=== PATIENT | male | born 1990 | race Caucasian/White ===

== ENCOUNTER 2019-12-16 12:25 | Emergency (ER) | payer SELFPAY ==
[~2019-12-16] VITALS: Ht 175.3 cm; Wt 65.8 kg
[~2019-12-16 12:25] MED LIST: ACID CONTROL150 MG PO; ZOFRAN ODT4 MG PO
[2019-12-16] MEDS ORDERED: DOXYCYCLINE HY100 MG PO (13:36)
== END 2019-12-16 13:47 | disposition home or self-care (01) ==
LOC: ED 12:25
DX: S30.860A Insect bite (nonvenomous) of lower back and pelvis, initial encounter (principal); K21.9 Gastro-esophageal reflux disease without esophagitis; F17.200 Nicotine dependence, unspecified, uncomplicated; Z88.5 Allergy status to narcotic agent; Z79.899 Other long term (current) drug therapy; W57.XXXA Bitten or stung by nonvenomous insect and other nonvenomous arthropods, initial encounter
CPT/HCPCS: 99282

== ENCOUNTER 2023-04-11 17:40 | Inpatient (IN) | payer OTHER ==
[~2023-04-11] VITALS: Ht 175.3 cm; Wt 57.9 kg
--- OUTSIDE RECORDS SUMMARY | ~2023-04-11 | XMS | Continuity of Care Document ---
Demographics + + + | Address | [address] | | | [place] [address] | + + + | Preferred Language | Unknown | + + + | Marital Status | Never | + + + | Yarsani Affiliation | Unknown | + + + | Race | White | + + + | Ethnic Group | Unknown | + + + Author + + + | Author | [facility] | + + + | Organization | [facility] | + + + | Address | [address] | | | [place] [address] | + + + | Phone | | + + + Care Team Providers + + + + | Care Director Hedis Name | Role | Phone | + + + + Unavailable | Unavailable | + + + + Allergies and Intolerances + + + + + + | date | description | facility | reaction | severity | + + + + + + | (no date) | morphine | [facility] | (no reaction) | (no severity) | + + + + + + Encounters No information. Functional Status No information. Immunizations No information. Medications No information. Problems No information. Procedures No information. Results/Labs No information. Social History No information. Vital Signs No information."
[~2023-04-11 17:40] MED LIST changes: +DOXYCYCLINE HY100 MG PO
[2023-04-11 18:14] LABS: BASOPHILS 0.5 % (0-2); EOSINOPHILS 1.6 % (0-6); HEMATOCRIT 48.6 % (35.0-50.0); HEMOGLOBIN 16.5 g/dL (12.0-18.0); LYMPHOCYTES 12.1 % (24-44); MCH 28.7 (27-36); MCHC 34.1 g/dl (30-36); MCV 84.2 fl (81-99); MONOCYTES 4.6 % (0-12); NEUTROPHILS 81.2 % (39-80); PLATELET COUNT 280 K/uL (140-440); RBC 5.77 M/ul (4.3-5.7); RDW 13.7 (10.5-15.0)
[2023-04-11 18:29] LABS: ALBUMIN 4.6 g/dL (3.4-5.0); ALBUMIN/GLOBULIN RATIO 1.07 (1.1-2.4); ANION GAP 13.5 (7-21); BILIRUBIN, TOTAL 1.1 ng/dL (0.2-1.0); BUN/CREATININE RATIO 9.44 (6.0-28.6); CALCIUM 10.3 mg/dL (8.5-10.1); CREATININE, SERUM 1.27 mg/dL (0.70-1.30); POTASSIUM 3.5 mmol/L (3.5-5.1); PROTEIN, TOTAL 8.9 g/dL (6.4-8.2)
--- NOTE | 2023-04-11 20:47 | NUR ---
PT ASSESSMENT COMPLETE. PT RESTING IN BED, VERY DROWSY. MINIMALLY OPENS HIS EYES. NO NONVERBAL S/SX PAIN PRESENT. BT'S HYPOACTIVE. PT DENIES ABD TENDERNESS. MILD ABD DISTENSION NOTED. NG TUBE TO LIWS, DRAINING LIGHT BROWN FLUID. IV FLUSHED WITH 10 ML NS. WNL. VS OBTAINED. WNL. FLOAT RN AT BEDSIDE FOR ADMISSION PROCESS. PT'S MOM PRESENT AT BEDSIDE. FURTHER NEEDS DENIED AT THIS TIME. CALL LIGHT IN REACH.
[2023-04-11 20:58] VITALS: BP 116/70
--- NOTE | 2023-04-11 21:21 | NUR ---
REPORT RECEIVED FROM KEYONNA Soto RN. PT DROWSY, MOVES SELF OVER TO BED. IV WNL, CDI, FLUSHED WELL, MEDS PROVIDED. NG ON LIS. PT DENIES PAIN AT THIS TIME. BMAT 3, SBA FOR TUBING. URINAL AT BEDSIDE. MOTHER TOOK HOME WALLET AND KNIFE, PT BELONGINGS CONSIST OF A CELL PHONE AT BEDSIDE, A SHIRT, SHOES, JEANS AND BELT IN ROOM. MOUTH SWAB PROVIDED. RAILS UP, BED ALARM ON, CALL LIGHT IN REACH. REPORT THEN GIVEN TO WINNIE JERNIGAN RN.
--- NOTE | 2023-04-12 00:06 | NUR ---
PT UTILIZES CALL LIGHT, REQUESTS ADDITIONAL MOUTH SWAB, PROVIDED. DENIES FURTHER NEEDS. CALL LIGHT IN REACH.
[2023-04-12 01:44] VITALS: BP 112/66
--- NOTE | 2023-04-12 01:50 | NUR ---
PT ASSESSMENT COMPLETE. VS OBTAINED. WHILE OBTAINING VS PT BECOMES VERY ANXIOUS, WHIMPERING, ROCKING IN BED. STATING THAT THE NG TUBE WAS INCREDIBLY PAINFUL AND HE WAS UNABLE TO TOLERATE THE PAIN. PT RATES PAIN 7/10. PRNS ADMINISTERED. SEE EMAR. NG TO LIWS. LIGHT BROWN DRAINAGE PRESENT IN CANISTER. BT'S HYPOACTIVE. ABD TENDER TO PALPATION. PT REPORTS MILD DISTENSION. IV FLUSHED WITH 10 ML NS. WNL. IFV INFUSING ORDERED. PT UNABLE TO VOID SINCE ADMISSION. ENCOUAGED PT TO USE URINAL. PT STATES UNDERSTANDING. DENIES FURTHER NEEDS AT THIS TIME. CALL LIGHT IN REACH.
--- NOTE | 2023-04-12 04:27 | NUR ---
PT RESTING IN BED WITH EYES CLOSED. RESPIRATIONS EVEN AND UNLABORED. PT APPEARS TO BE SLEEPING. CALL LIGHT IN REACH.
[2023-04-12 05:37] VITALS: BP 118/63
[2023-04-12 05:54] LABS: BASOPHILS 0.5 % (0-2); EOSINOPHILS 4.4 % (0-6); HEMATOCRIT 39.7 % (35.0-50.0); HEMOGLOBIN 13.4 g/dL (12.0-18.0); LYMPHOCYTES 20.7 % (24-44); MCH 28.5 (27-36); MCHC 33.7 g/dl (30-36); MCV 84.7 fl (81-99); MONOCYTES 6.7 % (0-12); NEUTROPHILS 67.7 % (39-80); PLATELET COUNT 200 K/uL (140-440); RBC 4.69 M/ul (4.3-5.7); RDW 13.6 (10.5-15.0)
[2023-04-12 06:08] LABS: ALBUMIN 3.3 g/dL (3.4-5.0); ALBUMIN/GLOBULIN RATIO 0.97 (1.1-2.4); ANION GAP 8.1 (7-21); BILIRUBIN, TOTAL 0.5 ng/dL (0.2-1.0); BUN/CREATININE RATIO 10.28 (6.0-28.6); CALCIUM 8.9 mg/dL (8.5-10.1); CREATININE, SERUM 1.07 mg/dL (0.70-1.30); MAGNESIUM 1.5 mg/dL (1.8-2.4); PHOSPHORUS, INORGANIC 3.8 mg/dL (2.5-4.9); POTASSIUM 3.1 mmol/L (3.5-5.1); PROTEIN, TOTAL 6.7 g/dL (6.4-8.2)
--- NOTE | 2023-04-12 06:25 | NUR ---
PT BLADDER SCAN SHOWS 471ML. PT EDUCATION PROVIDED ABOUT THE NEED TO URINATE WITH GREATER THAN 400ML AND THE OPTIONS TO EMPTY THE BLADDER. PT STANDS AT BEDSIDE AND URINATES WITHOUT DIFFICULTY. SAMPLE SENT TO LAB. PT STATES NO OTHER NEEDS AT THIS TIME. NG @ LIS. IV FLUIDS INFUSING PER ORDER. CALL LIGHT IN REACH, BED ALARM ON.
[2023-04-12 06:26] LABS: BILIRUBIN, URINE POSITIVE (negative); BLOOD/HGB, URINE NEGATIVE (Negative); KETONE, URINE SMALL (Negative); LEUK ESTERASE, URINE NEGATIVE (negative); NITRITE, URINE NEGATIVE (negative); PH, URINE 6.5 (5-7)
--- NOTE | 2023-04-12 06:38 | CONS ---
[facility] [address], [place] [address] Signed DATE OF CONSULTATION: 04/11/2023 CHIEF COMPLAINT: Right lower quadrant abdominal pain. HISTORY OF PRESENT ILLNESS: Josefina is a 32-year-old young man, who underwent an open appendectomy with Dr. Hanley at age of [age]. 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 He went down to our [facility] in [place], [place], and had it repaired by the urologist. He had actually done very well since that time. Unfortunately, he lives from home to home to home and has been using methamphetamines. Although he tells his mom he has not used any methamphetamines for eight months. In August of this year, he was at [facility] in [place], [place]. He underwent laparotomy with lysis of adhesions, repair of a perforated bowel. He had called his mom earlier today, worried after that he was in a similar situation with a bowel obstruction. She went and found him at a friend's house and brought him to our local emergency room for evaluation. His white count was elevated. He is tender in the right lower quadrant and also a bit agitated, difficult to deal with. He had to be heavily sedated just to place the NG tube. CT scan shows the transition point in the mid small bowel with fecalization and dilated all the way back through the stomach. The distal portion is decompressed. His distal ureters and bladder appear normal. I have been asked to see him as a general surgeon on-call. In the meantime, he has had his NG tube placed. Currently he is quite sedated. PAST MEDICAL HISTORY: Gastroesophageal reflux disease, small-bowel obstruction, and congenital ureteral reflux. PAST SURGICAL HISTORY: Includes his open appendectomy at age [age] [address] Hanley, repair of his distal ureter at [facility] around age [age] or [age], an atrophic left kidney, lysis of adhesions with repair of small-bowel perforation in August 2022, at [facility] in [place], [place]. SOCIAL HISTORY: He does smoke cigarettes. He told his mother he has been off meth for 8 months. She is not sure if he drinks. He has no primary care provider. He has no pharmacy. His mother is Xochitl Mclaughlin at [phone]. Josefina is now and has one son. He is unemployed. FAMILY HISTORY: Brother developed diabetes at age 16. His mom has diabetes. Electronically Signed By: YEE BUSTOS MD 04/12/23 0638 PATIENT NAME: JOSEFINA COLORADO CONSULTATION DATE OF : 89 REPORT #: [id number] PHYSICIAN: YEE BUSTOS MD PCP: NO PRIMARY CARE PHYSICIAN REPORT IS CONFIDENTIAL AND NOT TO BE RELEASED WITHOUT AUTHORIZATION [facility] [address], [place] [address] Signed REVIEW OF SYSTEMS: I reviewed 10 systems with his mom. She actually filled in quite a bit of detail. ALLERGIES: Morphine. MEDICATIONS: Zantac, although not currently taking. PHYSICAL EXAMINATION: VITAL SIGNS: He was too agitated to take his blood pressure, his heart rate is 116, his respiratory rate 15, temperature is 97.5, he is 97% on room air. He is 5 feet 9 inches and 65 kg with a body mass index of 21. GENERAL: Josefina is a 32-year-old young man, lying supine semi-recumbent in his ER bed. He is quite sedated and just had his NG tube placed. His mom is at the bedside. Our nurse was in the room with this. Amazingly, he does answer appropriately, but very slowly. LUNGS: Clear to auscultation bilaterally. HEART: Regular rate rhythm without murmurs. ABDOMEN: Soft, flat, but he is tender in the right lower quadrant. LABORATORY DATA: His white blood cell count is 17.2, hemoglobin 16, neutrophils 81, platelets 280. Creatinine 1.27, his bicarb is 33, calcium is 10.3. Liver function tests are negative. Albumin is 4.6. RADIOGRAPHIC STUDIES: CT scan images and report has been reviewed. He has a transition point in his mid small-bowel in the right lower quadrant with fecalization and dilation of the proximal small-bowel and stomach. The distal small-bowel is decompressed. His distal ureters and bladder seem to be normal. ASSESSMENT AND PLAN: Josefina is a 32-year-old young man, who presents with a small-bowel obstruction in his right lower quadrant. He is going to be admitted and treated conservatively for the time being and hydrated, and I think we will go and start antibiotics as well. We will recheck his labs and reassess him 1st thing in the morning. I have explained to his mom he may very well need surgery once again. She has expressed understanding, agrees to above plan. Yee Bustos MD Electronically Signed By: YEE BUSTOS MD 04/12/23 0638 PATIENT NAME: JOSEFINA COLORADO CONSULTATION DATE OF : 89 REPORT #: [id number] PHYSICIAN: YEE BUSTOS MD PCP: NO PRIMARY CARE PHYSICIAN REPORT IS CONFIDENTIAL AND NOT TO BE RELEASED WITHOUT AUTHORIZATION [address] [place] [address] Signed ALB/MODL /[id number] cc: Yee Bustos MD Copies: YEE BUSTOS MD ~ Electronically Signed By: YEE BUSTOS MD 04/12/23 0638 PATIENT NAME: JOSEFINA COLORADO CONSULTATION DATE OF : 89 REPORT #: [id number] PHYSICIAN: YEE BUSTOS MD PCP: NO PRIMARY CARE PHYSICIAN REPORT IS CONFIDENTIAL AND NOT TO BE RELEASED WITHOUT AUTHORIZATION
--- NOTE | 2023-04-12 07:15 | NUR ---
IV PUMP ALARMING, NEW BAG IV FLUIDS PROVIDED. IV SITE WNL. CALL LIGHT IN REACH, BED ALARM ON.
--- NOTE | 2023-04-12 07:30 | NUR ---
REPORT FROM EUGENE JERNIGAN. PT HAS NG LIWS AND APPEARS TO BE RESTING WITH EYES CLOSED.
[2023-04-12 08:56] VITALS: BP 111/60
--- NOTE | 2023-04-12 08:56 | NUR ---
STARTED NEW IV IN RFA DUE TO MULT MEDS DUE ATT. PT TOLERATED WELL. LIWS WNL. GIVEN 1MG PAIN MEDS FOR 7\10 PAIN OF NOSE\THROAT. ABD FLAT AND NON TENDER. DENIES NEED TO VOID. BLINDS OPEN.
--- NOTE | 2023-04-12 09:19 | NUR ---
PT APPEARS TO BE SLEEPING. DID NOT ROUSE TO MY KNOCK. LEFT GUIDEPOST AND CONTACT CARD. PRAYED SILENT PRAYER FOR HEALING.
--- NOTE | 2023-04-12 09:25 | NUR ---
INTO PATIENT ROOM, PATIENT SLEEPING. DOES NOT WAKE TO VOICE. WILL RETURN AT A LATER TIME TO COMPLETE ASSESSMENT.
--- NOTE | 2023-04-12 09:48 | NUR ---
SWITCHED TO AB. PT REMAINS RESTING WITH EYES CLOSED. ANSWERS QUESTIONS MINIMALLY WITH EYES CLOSED AND MOSTLY GRUNTS.
[2023-04-12 10:31] LABS: AMPHETAMINES, UR POSITIVE (NEGATIVE); BARBITURATES, UR NEGATIVE (NEGATIVE); BENZODIAZEPINES, UR POSITIVE (NEGATIVE); COCAINE, UR NEGATIVE (NEGATIVE); MARIJUANA (THC), UR POSITIVE (NEGATIVE); MDMA, UR POSITIVE (NEGATIVE); METHADONE, UR NEGATIVE (NEGATIVE); METHAMPHETAMINE, UR POSITIVE (NEGATIVE); OPIATES, UR POSITIVE (NEGATIVE); OXYCODONE, UR NEGATIVE (NEGATIVE); PHENCYCLIDINE, UR NEGATIVE (NEGATIVE); TRICYCLIC ANTIDEPRESSANT, UR NEGATIVE (NEGATIVE)
[2023-04-12 10:32] LABS: BUPRENORPHINE,UR NEGATIVE (NEGATIVE)
--- NOTE | 2023-04-12 10:57 | NUR ---
PT RESTING WITH EYES CLOSED. OUTPUT ON NG APPEARS TO HAVE SLOWED SLIGHTLY. IV INFUSING IN BOTH LOCATIONS.
--- NOTE | 2023-04-12 11:00 | NUR ---
PT GVE VERBAL CONSENT TO SPEAK WITH MOTHER REGARDING UPDATE
--- NOTE | 2023-04-12 11:36 | NUR ---
SPOKE WITH MOTHER. MIGHT BE INLATER TODAY. PT BACK TO IVF AB AND ELECTROLYTES HAVE BEEN COMPLETED. DENIES NEED TO VOID.
--- NOTE | 2023-04-12 12:24 | NUR ---
INTO SEE PATIENT, PATIENT SLEEPING. ATTEMPTED TO WAKE PATIENT, BUT HE DOES NOT WAKE TO VOICE. REQUESTED STAFF ADVISE WHEN PATIENT IS AWAKE.
[2023-04-12 13:18] VITALS: BP 102/67
--- NOTE | 2023-04-12 13:52 | NUR ---
PT RESTING WITH EYES CLOSED. DENIES NEEDS ATT.
--- NOTE | 2023-04-12 15:44 | NUR ---
PT TRIED TO VOID, UNABLE. BLADDER SCANNED FOR 350. ADVISED TO TRY AGAIN. WENT TO GET PAIN MEDICATION AND HE HAD VOIDED UPON RETURN.
[2023-04-12 17:28] VITALS: BP 112/72
--- NOTE | 2023-04-12 19:41 | NUR ---
RECEIVED REPORT FROM DAY SHIFT RN. PATIENT IS RESTING IN BED WITH EYES CLSOED, RR 15. WHEN THIS RN LEFT RROM PATIENT COULD BE HEARD DOWN THE G[place]ERT YELLING. PATIENT REPORTS 8/10 PAIN. PRN PAIN MEDICATION GIVEN PER ORDER. PATIENT DENIES ANY FURTHER NEEDS. CALL LIGHT IN REACH.
[2023-04-12 19:56] VITALS: BP 116/74
--- NOTE | 2023-04-12 20:09 | NUR ---
PATIENTS VITALS TAKEN AND RECORDED. INTAKE AND OUTPUT RECORDED. PATIENT DENIES THE NEED TO VOID AT THIS TIME. PATIENTS NG TO LWIS. HYPOACTIVE BOWELS TONES. PATIENT REPORTS 4/10 PAIN AND DENIES THE NEED FOR INTERVENTION AT THIS TIME. PATIENT DENIES ANY NAUSEA. IV INFUSING PER ORDER. PATIENT ABLE TO DEMONSTRATE IS X2. SCDS IN PLACE. PATIENT IS AAOX4. PATIENT DENIES ANY FURTHER NEEDS. CALL LIGHT AND BELONGINGS ARE WITHIN REACH.
--- NOTE | 2023-04-13 00:29 | NUR ---
PATIENT IS RESTING IN BED WITH EYES CLOSED, RR 15. CALL LIGHT IN REACH. IV INFUSING PER ORDER.
[2023-04-13 01:31] VITALS: BP 109/68
--- NOTE | 2023-04-13 01:57 | NUR ---
PATIENTS VITALS TAKEN AND RECORDED. INTAKE AND OUTPUT RECORDED. PATIENT ASSISTED TO THE BR A 1PA. PATIENT IS LIGHT HEADED WHEN UP AND UNSTEADY ON HIS FEET. PATIENT BACK IN BED RESTING. NG TO LWIS. IV INFUSING PER ORDER. PATIENT DENIES ANY NAUSEA. PATIENT RATES PAIN AT A 6/10, PRN PAIN MEDICATION GIVEN PER ORDER. PATIENT HAS HIS SISTER AND HER BF IN ROOM AND THEY ARE LEAVING. PATIENT ASKED THEM TO TAKE HIS BELONGINGS WITH THEM. PATIENT DENIES ANY FURTHER NEEDS. CALL LIGHT IN REACH.
--- NOTE | 2023-04-13 04:01 | NUR ---
PATIENT IS RESTING IN BED WITH EYES CLSOED, RR 15. CALL LIGHT IN REACH. IV INFUSING PER ORDER.
[2023-04-13 05:15] VITALS: BP 116/74
[2023-04-13 05:37] LABS: BASOPHILS 0.5 % (0-2); HEMOGLOBIN 12.4 g/dL (12.0-18.0); LYMPHOCYTES 27.5 % (24-44); MCH 28.1 (27-36); MCHC 32.7 g/dl (30-36); MONOCYTES 8.7 % (0-12); NEUTROPHILS 56.3 % (39-80); PLATELET COUNT 171 K/uL (140-440); RBC 4.42 M/ul (4.3-5.7); RDW 13.7 (10.5-15.0)
[2023-04-13 05:52] LABS: ALBUMIN 2.9 g/dL (3.4-5.0); ALBUMIN/GLOBULIN RATIO 0.97 (1.1-2.4); ANION GAP 8.6 (7-21); BILIRUBIN, TOTAL 0.3 ng/dL (0.2-1.0); BUN/CREATININE RATIO 4.7 (6.0-28.6); CALCIUM 8.8 mg/dL (8.5-10.1); CREATININE, SERUM 0.85 mg/dL (0.70-1.30); MAGNESIUM 1.7 mg/dL (1.8-2.4); PHOSPHORUS, INORGANIC 3.3 mg/dL (2.5-4.9); POTASSIUM 3.6 mmol/L (3.5-5.1); PROTEIN, TOTAL 5.9 g/dL (6.4-8.2)
--- NOTE | 2023-04-13 05:55 | NUR ---
LAB IN ROOM. PATIENTS VITALS TAKEN AND RECORDED. PATIENT DENIES THE NEED TO VOID. PATIENT RATES PAIN AT A 2/10 AND DENIES THE NEED FOR INTERVENTION. PATIENT CONTINUES TO HAVE NG LWIS. PATIENT DENIES ANY NAUSEA. IV INFUSING PER ORDER. PATIENT PROVIDED FRESH MOUTH SWABS. PATIENT DENIES ANY FURTHER NEEDS. CALL LIGHT IN REACH.
--- NOTE | 2023-04-13 07:01 | NUR ---
NOTIFIED BY PRIMARY RN THAT PATIENT REQUESTING TO LEAVE AMA. THIS RN IN ROOM. DISCUSSED RISKS WITH LEAVING AMA WITH pt TO INCLUDE PERFORATION, INFECTION, . pt SIGNS AMA FORM. MD AND PRIMARY RN ALSO DISCUSSED RISKS WITH pt AND PLAN OF CARE RECOMMENDED.
--- NOTE | 2023-04-13 07:03 | NUR ---
THIS RN TO ROOM WITH DR BUSTOS. DR BUSTOS DISCUSSED PATIENT OPTIONS. PATIENT STATED "I AM JUST LEAVING". DR BUSTOS EDUCATED PATIENT THAT IT WAS HIS CHOICE. DR BUSTOS LEFT PATIENTS ROOM. THIS RN PROVIDED SUPPORT FOR PATIENT AND ATTEMPTED TO CONVENCE PATIENT TO STAY. PATIENT CONTINUED TO REFUSE TO STAY. PATIENTS IVS X2 REMOVED. NG TUBE REMOVED PATIENT LEFT IN PAPER SCRUBS AND ALL BELONGINGS. RAJI TRUJILLO RN EDUCATED PATIENT ON LEAVING AMA AND THE NEEGATIVE IMPLICATIONS. PATIENT VERBALIZED UNDERSTANDING AND SIGNED AMA FORM.
--- NOTE | 2023-04-13 08:00 | DS ---
[facility] [address] [place], [place] [address] Signed ADMISSION DATE: 04/11/2023 DISCHARGE DATE: 04/13/2023 FINAL DIAGNOSIS: Recurrent small-bowel obstruction and terminal ileum. PROCEDURE: CT scan of abdomen and pelvis. HISTORY OF PRESENT ILLNESS: Josefina is a 32-year-old young gentleman, who apparently is born and raised in [place], [place]. At age 7, he underwent a standard open appendectomy through a right lower quadrant incision with Dr. Hanley. 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 He had gone down to [facility] in [place], [place] to have that repaired. Unfortunately, he is now , although he does have one son. He is unemployed and he polysubstance abuse. He lives in friend's house. He was having trouble with the bowel obstruction and was admitted to [facility] on 08/16/2022. Two days later, he underwent a standard laparotomy with lysis of adhesions associated with his prior appendectomy. He had a typical injury that was oversewn with some Vicryl suture. He had been discharged from the hospital and was doing well. He never went back for followup. He removed his own moira according to his mother. He went back to his previous polysubstance abuse. He has developed recurrent symptoms and decided to come to [facility] here in [place], [place]. In the emergency room, he seemed to be tender in the right lower quadrant. He was distended and the CT scan confirmed his recurrent small-bowel obstruction and terminal ileum. He once again required significant sedation in order to place his NG tube and I was asked to admit him as a local general surgeon on-call. HOSPITAL COURSE: Josefina was admitted as above and overall he has done well. I was able to talk with his mother in quite a bit of detail. His sister and his friends came last night to visit him as well. He is clearly decompressed and well hydrated and overall doing better. He said he has not had any flatus or bowel movement. We had discussed the idea of small-bowel follow-through to evaluate the bowel obstruction. He did not feel it was warranted and he wanted to leave the hospital AMA. He understands that scar tissue can return 20% of the time the same or even worse than before. There are times when a section of small bowel has to be resected as well. Despite my best efforts and efforts from the nurse, he has decided to leave AMA. Consequently, he asked for the NG tube to be removed and he wants some clothing so he can leave. He is in the process of signing all the paperwork Electronically Signed By: YEE BUSTOS MD 04/13/23 0800 PATIENT NAME: JOSEFINA COLORADO DISCHARGE SUMMARY DATE OF : 89 REPORT #: [id number] PHYSICIAN: YEE BUSTOS MD PCP: NO PRIMARY CARE PHYSICIAN REPORT IS CONFIDENTIAL AND NOT TO BE RELEASED WITHOUT AUTHORIZATION [address] [address] Signed currently. He will follow up in our local emergency room as needed. He has expressed understanding and agrees with the above plan. MD MARA Renner/CHEOL /[id number] cc: Yee Bustos MD Copies: YEE BUSTOS MD ~ Electronically Signed By: YEE BUSTOS MD 04/13/23 0800 PATIENT NAME: JOSEFINA COLORADO SHAE DISCHARGE SUMMARY DATE OF : 89 REPORT #: [id number] PHYSICIAN: YEE BUSTOS MD PCP: NO PRIMARY CARE PHYSICIAN REPORT IS CONFIDENTIAL AND NOT TO BE RELEASED WITHOUT AUTHORIZATION
== END 2023-04-13 07:00 | disposition left against medical advice (07) | DRG 390 ==
LOC: ED 17:40 → MS 17:41
PROVIDERS: Family Medicine; ADMIT Colon & Rectal Surgery; ATTEND Colon & Rectal Surgery
DX: K56.609 Unspecified intestinal obstruction, unspecified as to partial versus complete obstruction (principal); K21.9 Gastro-esophageal reflux disease without esophagitis; F17.210 Nicotine dependence, cigarettes, uncomplicated; F12.10 Cannabis abuse, uncomplicated; E87.6 Hypokalemia; E83.42 Hypomagnesemia; Z53.29 Procedure and treatment not carried out because of patient's decision for other reasons; Z90.49 Acquired absence of other specified parts of digestive tract; Z98.890 Other specified postprocedural states; Z88.5 Allergy status to narcotic agent; Z79.899 Other long term (current) drug therapy; Z79.2 Long term (current) use of antibiotics
CPT/HCPCS: 36415; 74177; 80048; 80053; 81003; 83690; 83735; 84100; 84134; 85025; 96375; 96376; 99285-25; C9113; J0696; J1170; J2060; J2405; J3475; J3480; J3490; J7030; J7060; J7121